=== PATIENT | male | born 1975 | race Hispanic/Latino ===

== ENCOUNTER 2022-10-28 08:13 | Inpatient (IN) | payer BC ==
[~2022-10-28] VITALS: Ht 182.9 cm; Wt 177.3 kg
[2022-10-28 08:43] LABS: BASOPHILS % (AUTO) 0.5 % (0.0-5.0); EOSINOPHILS % (AUTO) 0.4 % (0.0-8.0); HEMATOCRIT 46.7 % (42-54); LYMPHOCYTES % (AUTO) 10.4 % (21.0-51.0); MEAN CORPUSCULAR HGB CONC 31.7 g/dL (32.0-36.0); MEAN CORPUSCULAR VOLUME 94.7 fL (79-99); MONOCYTES % (AUTO) 9.3 % (3.0-13.0); NEUTROPHILS % (AUTO) 78.9 % (40.0-77.0); PLATELET COUNT (AUTO) 174 K/uL (130-400); RED BLOOD CELL COUNT(AUTO) 4.93 MIL/uL (4.50-6.20); RED CELL DISTRIBUTION WIDTH 12.9 % (11.0-15.5); WHITE BLOOD COUNT (AUTO) 10.6 K/uL (4.8-10.8)
[2022-10-28 08:44] LABS: APPEARANCE,URINE CLOUDY (CLEAR); BILIRUBIN,URINE 1 mg/dL (NEGATIVE); COLOR,URINE YELLOW (YELLOW); GLUCOSE, URINE (UA) NEGATIVE (NEGATIVE); KETONES,URINE NEGATIVE (NEGATIVE); LEUKOCYTE ESTERASE ,URINE 75 Leu/uL (NEGATIVE); NITRATE,URINE NEGATIVE (NEGATIVE); PH,URINE 5.5 (5.0-8.0); PROTEIN,URINE 100 mg/dL (NEGATIVE)
[2022-10-28 08:48] LABS: MUCUS,URINE MANY LPF (None Seen); SQUAMOUS EPITHELIAL CELL,UR RARE /HPF (0-2)
[2022-10-28 08:56] LABS: ALBUMIN 3.6 g/dL (3.5-5.0); CREATININE 1.1 mg/dL (0.5-1.5); POTASSIUM 3.9 mmol/L (3.5-5.1); TOTAL PROTEIN, SERUM 7.3 g/dL (6.0-8.3)
[2022-10-28] MEDS ORDERED: SOLU-MEDROL 125MG VIAL IVP ONE (13:00)
[2022-10-28] MEDS ORDERED: FUROSEMIDE 40MG VIAL IV ONE (13:00)
[2022-10-28] MEDS ORDERED: IPRATROPIUM/ALBUTEROL SULFATE 3 ML SOLUTION IH ONE (13:00)
[2022-10-28] MEDS ORDERED: IPRATROPIUM 0.5 MG/2.5 ML INH IH ONE ×2 (13:08→23:02)
[2022-10-28] MEDS ORDERED: ALBUTEROL 0.042% 1.25MG/3ML IH ONE ×3 (13:08→23:02)
[2022-10-28 13:27] LABS: INR 1.09 (0.85-1.15); PROTHROMBIN TIME 11.8 SEC (9.6-11.6)
[2022-10-28 13:28] LABS: PARTIAL THROMBOPLASTIN TIME 26.8 SEC (26.3-35.5)
[2022-10-28] MEDS ORDERED: IOHEXOL 350 MG/ML 100ML INFUS..BTL IV ONE (16:14)
[2022-10-28] MEDS ORDERED: CEFTRIAXONE 1G VIAL IVP ONE (17:00)
[2022-10-28] MEDS ORDERED: AZITHROMYCIN 500MG+NS 250ML IVPB SCH (17:00)
[2022-10-28] MEDS: CEFTRIAXONE 1G VIAL IVP SCH (18:30)
[2022-10-28] MEDS ORDERED: IPRATROPIUM/ALBUTEROL SULFATE 3 ML SOLUTION IH PRN (18:30)
[2022-10-28] MEDS: AZITHROMYCIN 500MG+NS 250ML IVPB SCH (18:30)
[2022-10-28] MEDS ORDERED: ESCI10TA PO (20:33)
[2022-10-28] MEDS: IPRATROPIUM/ALBUTEROL SULFATE 3 ML SOLUTION IH SCH (23:05)
[2022-10-29 01:19] VITALS: BP 116/85
[2022-10-29 04:14] VITALS: BP 98/70
[2022-10-29] MEDS: IPRATROPIUM/ALBUTEROL SULFATE 3 ML SOLUTION IH SCH ×3 (06:00→18:00)
[2022-10-29 06:14] LABS: BASOPHILS % (AUTO) 0.2 % (0.0-5.0); EOSINOPHILS % (AUTO) 0.3 % (0.0-8.0); LYMPHOCYTES % (AUTO) 8.1 % (21.0-51.0); MEAN CORPUSCULAR HEMOGLOBIN 29.7 pg (27.0-33.0); MEAN CORPUSCULAR HGB CONC 31.4 g/dL (32.0-36.0); MEAN CORPUSCULAR VOLUME 94.8 fL (79-99); MONOCYTES % (AUTO) 6.8 % (3.0-13.0); NEUTROPHILS % (AUTO) 84.1 % (40.0-77.0); PLATELET COUNT (AUTO) 186 K/uL (130-400); RED BLOOD CELL COUNT(AUTO) 4.64 MIL/uL (4.50-6.20); RED CELL DISTRIBUTION WIDTH 12.8 % (11.0-15.5); WHITE BLOOD COUNT (AUTO) 11.5 K/uL (4.8-10.8)
[2022-10-29] MEDS ORDERED: ALBUTEROL 0.042% 1.25MG/3ML IH ONE ×6 (06:20→23:27)
[2022-10-29 06:30] LABS: ALBUMIN 3.1 g/dL (3.5-5.0); CREATININE 1.1 mg/dL (0.5-1.5); POTASSIUM 4.7 mmol/L (3.5-5.1); TOTAL PROTEIN, SERUM 6.8 g/dL (6.0-8.3)
[2022-10-29] MEDS ORDERED: IPRATROPIUM 0.5 MG/2.5 ML INH IH ONE ×4 (06:30→23:40)
[2022-10-29 08:00] VITALS: BP 135/87
[2022-10-29] MEDS: OSELTAMIVIR PHOSPHATE 75 MG CAP PO SCH ×2 (09:29→21:07)
[2022-10-29] MEDS: ENOXAPARIN SODIUM 40 MG/0.4 ML SYRINGE SQ SCH (09:32)
[2022-10-29 12:00] VITALS: BP 106/71
[2022-10-29] MEDS ORDERED: FUROSEMIDE 40MG VIAL IV SCH (14:30)
[2022-10-29 15:36] LABS: ABG BASE EXCESS 1.5 mmol/L (-2.0-3.0); ABG HCO3 25.6 mmol/L (21.0-28.0); ABG OXYGEN SATURATION 94.3 % (95.0-99.0); ABG PCO2 38 mmHg (35-48)
[2022-10-29 16:00] VITALS: BP 125/82
[2022-10-29] MEDS: AZITHROMYCIN 500MG+NS 250ML IVPB SCH (17:42)
[2022-10-29] MEDS: FUROSEMIDE 20MG VIAL IV SCH ×2 (17:43→21:08)
[2022-10-29] MEDS: CEFTRIAXONE 1G VIAL IVP SCH (17:43)
[2022-10-29 20:00] VITALS: BP 122/80
[2022-10-29] MEDS ORDERED: DILTIAZEM 60MG TAB PO SCH (22:30)
[2022-10-29 23:29] LABS: T4 (THYROXINE) 7.8 ug/dL (4.7-13.3); THYROID STIMULATING HORMONE 2.27 uIU/mL (0.36-3.74)
[2022-10-30] VITALS (12 sets, daily range): BP systolic 95–131; BP diastolic 56–98
[2022-10-30 05:20] LABS: HEMATOCRIT 44.8 % (42-54); MEAN CORPUSCULAR HEMOGLOBIN 29.8 pg (27.0-33.0); MEAN CORPUSCULAR HGB CONC 30.8 g/dL (32.0-36.0); MEAN CORPUSCULAR VOLUME 96.8 fL (79-99); PLATELET COUNT (AUTO) 198 K/uL (130-400); RED BLOOD CELL COUNT(AUTO) 4.63 MIL/uL (4.50-6.20); RED CELL DISTRIBUTION WIDTH 12.9 % (11.0-15.5); WHITE BLOOD COUNT (AUTO) 11.6 K/uL (4.8-10.8)
[2022-10-30 05:37] LABS: CREATININE 1.3 mg/dL (0.5-1.5); MAGNESIUM 2.1 mg/dL (1.80-2.40); POTASSIUM 3.8 mmol/L (3.5-5.1)
[2022-10-30 05:54] LABS: HEMOGLOBIN A1C 5.4 % (4.0-6.0)
[2022-10-30] MEDS: IPRATROPIUM/ALBUTEROL SULFATE 3 ML SOLUTION IH SCH ×2 (06:00)
[2022-10-30] MEDS: FUROSEMIDE 20MG VIAL IV SCH ×3 (06:03→20:42)
[2022-10-30] MEDS ORDERED: ALBUTEROL 0.042% 1.25MG/3ML IH ONE (06:13)
[2022-10-30] MEDS ORDERED: IPRATROPIUM 0.5 MG/2.5 ML INH IH ONE (06:24)
[2022-10-30] MEDS: LORAZEPAM 2 MG/ML 1 ML VIAL IVP SCH ×3 (09:00→20:51)
[2022-10-30] MEDS: IPRATROPIUM 0.5 MG/2.5 ML INH IH SCH ×3 (11:21→23:39)
[2022-10-30 13:55] LABS: BODY FLUID RBC 2165 /cu. mm.; BODY FLUID WBC 1411 /cu. mm.
[2022-10-30 14:03] LABS: APPEARANCE BODY FLUID CLEAR (CLEAR); COLOR,BODY FLUID YELLOW (LT YELLOW); SPECIMENTYPE,BODY FLUID PLEURAL; TOTAL VOLUME,BODY FLUID 1000 mL
[2022-10-30 14:16] LABS: BF LYMPHOCYTE 65 %; BF MESOTHELIAL 10 %
[2022-10-30] MEDS ORDERED: LIDOCAINE HCL 1% 20 ML VIAL ONE (15:17)
[2022-10-30] MEDS: ENOXAPARIN SODIUM 40 MG/0.4 ML SYRINGE SQ SCH (15:54)
[2022-10-30] MEDS: ASPIRIN 81 MG EC TAB PO SCH (15:55)
[2022-10-30] MEDS: CEFTRIAXONE 1G VIAL IVP SCH (15:55)
[2022-10-30] MEDS: OSELTAMIVIR PHOSPHATE 75 MG CAP PO SCH ×2 (15:56→20:42)
[2022-10-30] MEDS: AZITHROMYCIN 500MG+NS 250ML IVPB SCH (15:57)
[2022-10-30] MEDS: CARVEDILOL 3.125 MG TABLET PO SCH (20:42)
[2022-10-31] VITALS: BP 107/72
[2022-10-31 05:07] LABS: BASOPHILS % (AUTO) 0.6 % (0.0-5.0); EOSINOPHILS % (AUTO) 1.4 % (0.0-8.0); LYMPHOCYTES % (AUTO) 21.1 % (21.0-51.0); MEAN CORPUSCULAR HEMOGLOBIN 29.9 pg (27.0-33.0); MEAN CORPUSCULAR HGB CONC 31.3 g/dL (32.0-36.0); MEAN CORPUSCULAR VOLUME 95.5 fL (79-99); MONOCYTES % (AUTO) 12.8 % (3.0-13.0); NEUTROPHILS % (AUTO) 63.8 % (40.0-77.0); PLATELET COUNT (AUTO) 202 K/uL (130-400); RED BLOOD CELL COUNT(AUTO) 4.92 MIL/uL (4.50-6.20); RED CELL DISTRIBUTION WIDTH 12.8 % (11.0-15.5); WHITE BLOOD COUNT (AUTO) 9.8 K/uL (4.8-10.8)
[2022-10-31 05:21] LABS: CREATININE 1.3 mg/dL (0.5-1.5); MAGNESIUM 2.2 mg/dL (1.80-2.40); POTASSIUM 4.4 mmol/L (3.5-5.1)
[2022-10-31 06:00] VITALS: BP 111/72
[2022-10-31 07:48] VITALS: BP 121/83
[2022-10-31] MEDS: IPRATROPIUM 0.5 MG/2.5 ML INH IH SCH ×2 (07:53→11:58)
[2022-10-31] MEDS: ASPIRIN 81 MG EC TAB PO SCH (09:04)
[2022-10-31] MEDS: OSELTAMIVIR PHOSPHATE 75 MG CAP PO SCH (09:05)
[2022-10-31] MEDS: CARVEDILOL 3.125 MG TABLET PO SCH (09:05)
[2022-10-31] MEDS: ENOXAPARIN SODIUM 40 MG/0.4 ML SYRINGE SQ SCH (09:06)
[2022-10-31] MEDS: FUROSEMIDE 20MG VIAL IV SCH (09:06)
[2022-10-31 11:03] VITALS: BP 106/75
[2022-10-31] MEDS ORDERED: AMOX1TAB16 PO (14:32)
[2022-10-31] MEDS ORDERED: IPRNEB IH (14:32)
[2022-10-31] MEDS ORDERED: DOXY100C5 PO (14:32)
== END 2022-10-31 15:15 | disposition home or self-care (01) | DRG 193 ==
LOC: EDH 08:13 → OBSVTOIN 18:06 → EDHIP 18:06 → 4CH 10-29 00:18
PROVIDERS: ADMIT Internal Medicine; ATTEND Internal Medicine
PROC: 0W993ZZ Drainage of Right Pleural Cavity, Percutaneous Approach (ICD-10-PCS; principal; 2022-10-31)
PROC: 5A09357 Assistance with Respiratory Ventilation, Less than 24 Consecutive Hours, Continuous Positive Airway Pressure (ICD-10-PCS; 2022-10-31)
DX: J10.00 Influenza due to other identified influenza virus with unspecified type of pneumonia (principal); I50.21 Acute systolic (congestive) heart failure; J96.01 Acute respiratory failure with hypoxia; Z68.43 Body mass index [BMI] 50.0-59.9, adult; J98.11 Atelectasis; E66.2 Morbid (severe) obesity with alveolar hypoventilation; I42.9 Cardiomyopathy, unspecified; J91.8 Pleural effusion in other conditions classified elsewhere; I11.0 Hypertensive heart disease with heart failure; F41.9 Anxiety disorder, unspecified; I83.893 Varicose veins of bilateral lower extremities with other complications; F32.A Depression, unspecified; I25.10 Atherosclerotic heart disease of native coronary artery without angina pectoris; I25.2 Old myocardial infarction; Z82.49 Family history of ischemic heart disease and other diseases of the circulatory system; Z79.899 Other long term (current) drug therapy
CPT/HCPCS: 32555; 36415; 36600; 71045; 71270; 80048; 80053; 81001; 82550; 82803; 82945; 83036; 83615; 83735; 83874; 83880; 83986; 84157; 84436; 84439; 84443; 84480; 84481; 84484; 85025; 85027; 85378; 85610; 85730; 87071; 87077; 87088; 87116; 87186; 87205; 87206; 87635; 87804; 89051; 93005; 93306; 93970; 94640; 94664; 94760; 96374; 96375; C1729; C9803; G0378; J0456; J0696; J1650; J1940; J2060; J2930; Q9967

== ENCOUNTER → 2025-07-18 | Outpatient (CLI) | payer BC ==
[~2025-07-18] MED LIST: ALBU18HF7 IH; AMIO200T73 PO; AMOX1TAB16 PO; BUME2TAB5 PO; DIGO125T71 PO; ESCI-8 PO; ESCI10TA PO; METO-408 PO; SACU1TAB PO; SPIR25TA6 PO
[2025-07-18 10:30] LABS: INR 1.37 (0.85-1.15)
--- NOTE | 2025-07-18 11:15 | NUR ---
ULTRASOUND GUIDED RIGHT THORACENTESIS PROCEDURE PERFORMED BY DR. Rosales GUEVARA. PUNCTURE SITE RIGHT POSTERIOR BACK AND PATIENT TOLERATED PROCEDURE WELL. TOTAL REMOVED 3.4 LITERS OF PLEURAL FLUID. END OF PROCEDURE AT 1100. CATHETER REMOVED AND DRESSING APPLIED. NO BLEEDING NOTED. POST CHEST X-RAY TAKEN AND READ BY DR. Rosales GUEVARA. NO PNEUMOTHORAX SEEN. DISCHARGE INSTRUCTIONS GIVEN TO PATIENT AND VERBALIZED UNDERSTANDING. DISCHARGED VIA WHEELCHAIR. AAO X3 WITH NO C/O PAIN. SPECIMEN SENT TO LAB.
[2025-07-18 13:00] LABS: APPEARANCE BODY FLUID CLEAR (CLEAR); COLOR,BODY FLUID YELLOW (LT YELLOW); SPECIMENTYPE,BODY FLUID PLEURAL
[2025-07-18 13:01] LABS: TOTAL VOLUME,BODY FLUID 3400 mL
[2025-07-18 13:11] LABS: PH PLEURAL FLUID 8.0
[2025-07-18 13:19] LABS: GLUCOSE PLEURAL FLUID 129; PROTEIN PLEURAL FLUID 2.8 mg/dL
[2025-07-18 13:37] LABS: BODY FLUID RBC 1011 /cu. mm.; BODY FLUID WBC 320 /cu. mm.
[2025-07-18 13:39] LABS: BF LYMPHOCYTE 66 %; BF MACROPHAGE 9; BF MESOTHELIAL 16 %; BF MONOCYTE 6 %; BF NEUTROPHIL 3.0 %; BF TOTAL CELLS COUNTED 100
--- NOTE | 2025-07-18 13:39 | HMCIMG ---
US THORACENTISIS/ASP W IMG IR HISTORY: Pleural effusion Procedure was performed by Dr. Josephine Asher M.D. PGY [address] Miguel PROCEDURE: Ultrasound guided thoracentesis. TECHNIQUE: Informed consent was obtained after explaining procedure and potential complications. The chest wall was prepped and draped in sterile fashion. Local anesthesia applied and under ultrasound guidance, a 5 Syri[place] needle was advanced through the chest wall and into the pleural space. Approximately 3.4 L of neto fluid was aspirated. The needle was removed and sterile dressing applied. Patient tolerated the procedure well and no complications were encountered. Estimated blood loss: Less than 5 cc. IMPRESSION: Successful ultrasound guided thoracentesis. Chest x-ray to follow.
--- NOTE | 2025-07-18 21:14 | HMCIMG ---
STUDY: X-RAY OF THE CHEST, 1 VIEW HISTORY: Status post right thoracentesis. TECHNIQUE: A single frontal view of the chest is submitted for interpretation. COMPARISON: Chest radiograph from 06/29/2025. FINDINGS: Pulmonary chaudhary: Extensive right perihilar airspace opacities are present. There are worsening patchy airspace opacities throughout the left hemithorax compared with the prior study. Previously seen right upper lobe atelectasis has decreased. Pulmonary vascular congestion is noted. No pneumothorax is identified. Cardiac silhouette: Cardiomegaly is present with an enlarged cardiomediastinal silhouette. Mediastinum and nahun: Hilar contours are obscured by perihilar opacities but show no discrete mass. Mediastinum is otherwise unchanged. Osseous structures: Visualized ribs, clavicles, scapulae, and thoracic spine demonstrate no acute or aggressive osseous abnormality. Miscellaneous: A left anterior chest wall cardiac pacemaker is in situ with leads in expected position. A small right pleural effusion is now evident. The possibility of a small left pleural effusion cannot be excluded. No post-procedural pneumothorax is seen. IMPRESSION: * Extensive right perihilar and worsening left lung airspace opacities on a background of pulmonary vascular congestion, suspicious for evolving multifocal pneumonia and/or pulmonary edema in the appropriate clinical context. * Interval development of a small right pleural effusion and possible small left pleural effusion. * Cardiomegaly with cardiac pacemaker in situ. * Compared with the chest radiograph from 06/29/2025, left lung airspace opacities and the small right pleural effusion have increased, while right upper lobe atelectasis has decreased; no evidence of post-thoracentesis pneumothorax. /[place]
== END ==
LOC: RAH 09:33
PROVIDERS: ATTEND Internal Medicine
DX: J90 Pleural effusion, not elsewhere classified (principal); I10 Essential (primary) hypertension; G47.33 Obstructive sleep apnea (adult) (pediatric); J18.9 Pneumonia, unspecified organism; E66.9 Obesity, unspecified; Z68.43 Body mass index [BMI] 50.0-59.9, adult; Z88.5 Allergy status to narcotic agent; Z83.3 Family history of diabetes mellitus; Z82.49 Family history of ischemic heart disease and other diseases of the circulatory system; Z79.899 Other long term (current) drug therapy; Z98.890 Other specified postprocedural states
CPT/HCPCS: 32555; 71045; 82945; 84157; 83986; 83615; 89051; 85610; 87071; 87205; 36415; 88108; 88305; 88342; 88341; C1729

== ENCOUNTER → 2025-08-16 | Outpatient (CLI) | payer BC ==
[~2025-08-16] MED LIST changes: -ALBU18HF7 IH; -AMIO200T73 PO; -AMOX1TAB16 PO; -BUME2TAB5 PO; +DEXA1TAB PO; +DEXA2TAB PO; -DIGO125T71 PO; -ESCI10TA PO; +FURO40TA7 PO; +RIVA2.5T PO; +ROSU10TA98 PO
== END | disposition home or self-care (01) ==
LOC: WHH 08:55
PROVIDERS: ATTEND Podiatrist Foot & Ankle Surgery
DX: I70.245 Atherosclerosis of native arteries of left leg with ulceration of other part of foot (principal); L97.521 Non-pressure chronic ulcer of other part of left foot limited to breakdown of skin; E78.00 Pure hypercholesterolemia, unspecified; I25.2 Old myocardial infarction; I13.0 Hypertensive heart and chronic kidney disease with heart failure and stage 1 through stage 4 chronic kidney disease, or unspecified chronic kidney disease; I50.43 Acute on chronic combined systolic (congestive) and diastolic (congestive) heart failure; N18.9 Chronic kidney disease, unspecified; E66.01 Morbid (severe) obesity due to excess calories; G47.33 Obstructive sleep apnea (adult) (pediatric); J44.1 Chronic obstructive pulmonary disease with (acute) exacerbation; I25.10 Atherosclerotic heart disease of native coronary artery without angina pectoris; Z90.49 Acquired absence of other specified parts of digestive tract; Z68.42 Body mass index [BMI] 45.0-49.9, adult; Z79.899 Other long term (current) drug therapy
CPT/HCPCS: 99215; A4450